=== PATIENT | female | born 1990 | race Caucasian/White ===

== ENCOUNTER 2023-11-15 05:40 | Inpatient (IN) | payer BC ==
[2023-11-14 16:42] LABS: Hematocrit 34.9 % (34.9-44.5); Hemoglobin 11.5 g/dL (12.0-15.5); Platelet Count 199 10x3/uL (150-450)
[2023-11-14 17:15] LABS: HBSAg Index 0.34 S/CO (0-0.99); HIV (1/2) Antibody/Antigen Non-Reactive (NonReactive); HIV 1/2 INDEX 0.12 S/CO (<1.00); Hep B Surf Ag Non-Reactive S/CO (NonReactive)
[2023-11-14 17:16] LABS: Syphilis Antibody Nonreactive (Nonreactive); Syphilis Antibody Index 0.11 S/CO (<1.00 Non-Reactive)
[2023-11-15] MEDS ORDERED: Methylergonovine 0.2 MG/ML VIAL IM PRN (05:45)
[2023-11-15] MEDS ORDERED: Famotidine/PF 20 mg/2ml Vial SLOW IVP PRN (05:45)
[2023-11-15] MEDS ORDERED: Promethazine HCl 25 MG/ML VIAL IM PRN ×2 (05:45→09:20)
[2023-11-15] MEDS ORDERED: hydrALAZINE 20 MG/ML VIAL SLOW IVP PRN (05:45)
[2023-11-15] MEDS ORDERED: Oxytocin 30 units/NS 500 ML 500 ML IV SCH (05:45)
[2023-11-15] MEDS ORDERED: Ondansetron PF 4 MG/2 ML Vial IVP PRN ×2 (05:45→09:20)
[2023-11-15] MEDS ORDERED: Carboprost 250 MCG/ML AMP IM PRN (05:45)
[2023-11-15] MEDS ORDERED: Diphenoxylate HCl/Atropine Tablet PO PRN ×2 (05:45)
[2023-11-15] MEDS ORDERED: Misoprostol 200 MCG TAB PR PRN (05:45)
[2023-11-15] MEDS ORDERED: Lactated Ringer's 1,000 ML IV SCH (05:45)
[2023-11-15] MEDS ORDERED: Bicitra 30 ML UDCUP PO PRN (05:45)
[2023-11-15] MEDS ORDERED: CEFAZOLIN 2 GM in Sodium Chloride 0.9% 100 ML IVPB SCH (05:45)
[2023-11-15 06:24] VITALS: BMI 31.0
[2023-11-15] MEDS ORDERED: diphenhydrAMINE 25 MG CAP PO PRN (09:07)
[2023-11-15] MEDS ORDERED: Lanolin Ointment 7 GM TUBE TOP PRN (09:07)
[2023-11-15] MEDS ORDERED: HYDROcodone/Acetaminophen 5/325 mg Tablet PO PRN (09:07)
[2023-11-15] MEDS ORDERED: Meperidine HCl/PF 25 MG (1 mL) VIAL SLOW IVP PRN (09:20)
[2023-11-15] MEDS ORDERED: Promethazine HCl 25 MG SUPP PR PRN (09:20)
[2023-11-15] MEDS ORDERED: Moisturizing Cream (Eucerin) 113 GM JAR TOP PRN (09:20)
[2023-11-15] MEDS ORDERED: Naloxone HCl 0.4 mg/ml Vial IVP PRN ×2 (09:20)
[2023-11-15] MEDS ORDERED: diphenhydrAMINE 50 MG/ML VIAL IVP PRN (09:20)
[2023-11-15] MEDS ORDERED: HYDROmorphone 0.5 MG/0.5 ML SYRINGE SLOW IVP PRN (09:20)
[2023-11-15] MEDS ORDERED: Naloxone HCl 0.4 mg/ml Vial IV PRN (09:20)
[2023-11-15] MEDS ORDERED: fentaNYL 50 mcg/mL 1 mL Vial SLOW IVP PRN (09:20)
[2023-11-15] MEDS ORDERED: Ketorolac Tromethamine 30 MG (1 mL) VIAL IVP SCH (09:30)
[2023-11-15] MEDS ORDERED: Communication Order-Pharmacy FS SCH (09:30)
[2023-11-15] MEDS: fentaNYL 50 mcg/mL 1 mL Vial ONE (12:00)
[2023-11-15] MEDS: Morphine PF 10 MG/10 ML VIAL ONE (12:00)
[2023-11-15] MEDS: Phenylephrine 40 MG/NS 250 ML 250 ML ONE (12:00)
[2023-11-15] MEDS: Acetaminophen 325 MG TAB PO SCH (12:01)
[2023-11-15] MEDS: Ondansetron PF 4 MG/2 ML Vial ONE (12:01)
[2023-11-15] MEDS: Oxytocin 10 UNITS/ML VIAL ONE (12:01)
[2023-11-15] MEDS: Ketorolac Tromethamine 30 MG (1 mL) VIAL IVP PRN (12:21)
[2023-11-15] MEDS: Simethicone Chewable 80 MG TAB PO PRN (12:21)
[2023-11-15] MEDS: Boostrix 0.5 ML (Tdap) VIAL (>/=7 yrs of age) IM ONE (12:22)
[2023-11-15] MEDS ORDERED: Ibuprofen 800 MG TAB PO SCH (14:00)
[2023-11-15] MEDS: Ondansetron PF 4 MG/2 ML Vial IVP PRN (15:20)
[2023-11-15] MEDS: Dextrose 5 % And 0.9 % NaCl 1,000 ML IV SCH (18:40)
[2023-11-15] MEDS: Docusate 100 MG CAP PO SCH (21:46)
[2023-11-15] MEDS: HYDROcodone/Acetaminophen 5/325 mg Tablet PO PRN (21:46)
[2023-11-16 03:37] LABS: Hematocrit 33.6 % (34.9-44.5); Hemoglobin 11.1 g/dL (12.0-15.5); Mean Corpuscular Hemoglobin 28.1 pg (27.0-33.0); Mean Corpuscular Volume 85.1 fl (81.6-98.3); Mean Platelet Volume 10.2 fl (7.4-10.4); Platelet Count 173 10x3/uL (150-450); RBC Distribution Width 15.5 % (11.5-14.5); Red Blood Cell (RBC) Count 3.95 10x6/uL (3.90-5.03); White Blood Cell (WBC) Count 8.5 10x3/uL (3.5-10.5)
[2023-11-16] MEDS: Dextrose 5% in Water 1,000 ML IV SCH (07:33)
[2023-11-16] MEDS: Prenatal Vitamin 1 TAB PO SCH (08:37)
[2023-11-16] MEDS: Ferrous Sulfate 325 MG TAB PO SCH (08:48)
[2023-11-16] MEDS: HYDROcodone/Acetaminophen 5/325 mg Tablet PO PRN (12:17)
[2023-11-16] MEDS: Guaifenesin DM 100-10/5 ML UDCUP PO PRN (17:46)
[2023-11-17] MEDS: Ibuprofen 800 MG TAB PO SCH (12:56)
[2023-11-17 16:26] VITALS: BP 124/69; TEMP 98.4
== END 2023-11-17 19:15 | disposition home or self-care (01) | DRG 787 ==
LOC: CSHLD 05:40 → CSHPP 11:30
PROVIDERS: ADMIT Obstetrics & Gynecology; ATTEND Obstetrics & Gynecology
PROC: 10D00Z1 Extraction of Products of Conception, Low, Open Approach (ICD-10-PCS; principal; 2023-11-15)
PROC: 3E0P05Z Introduction of Adhesion Barrier into Female Reproductive, Open Approach (ICD-10-PCS; 2023-11-15)
DX: O34.211 Maternal care for low transverse scar from previous cesarean delivery (principal); O33.0 Maternal care for disproportion due to deformity of maternal pelvic bones; D64.9 Anemia, unspecified; Z37.0 Single live birth; Z3A.39 39 weeks gestation of pregnancy; O99.02 Anemia complicating childbirth
CPT/HCPCS: 36415; 51702; 85014; 85018; 85027; 85049; 86780; 86850; 86900; 86901; 87340; 87389; J1885; J2274; J2405; J2590; J3010; J7042